=== PATIENT | male | born 1995 | race American Indian/Alaskan Native ===

== ENCOUNTER 2018-03-18 20:09 | Emergency (ER) | payer SELFPAY ==
[2018-03-18 20:46] VITALS: BP 121/74
[2018-03-19] MEDS ORDERED: MOTRIN PO ONE (02:43)
[2018-03-19] MEDS ORDERED: ULTRAM PO ONE (02:43)
--- NOTE | 2018-03-19 02:47 | Emergency Department Report ---
ED ENT HPI - General Chief complaint: Dental/Oral Stated complaint: TOOTHACHE; H/A Time Seen by Provider: 03/19/18 02:30 Source: patient Mode of arrival: Ambulatory Limitations: No Limitations - History of Present Illness Initial comments: 22-year-old -Thai male comes in complaining of toothache 3 days. Patient reports that he's had a toothache has been intermittent for the past few months but in the last 3 days it has gotten excruciating. Patient reports that he is having no relief from [id number] medications. Patient reports that he's tried Tylenol, Goody, Orajel without any relief. Patient is aware that he has a large cavity in the right upper tooth adjacent to his wisdom tooth. Patient reports she has not even able to eat soft foods such as noodles. MD complaint: tooth pain -: days(s) (3 excruciating pain), month(s) (several months intermittent pain) Location: tooth # (2) Severity: severe Severity scale (0 -10): 10 Quality: constant Consistency: constant Improves with: none Worsens with: eating Context- Dental: history of dental caries Associated Symptoms: toothache. denies: gum swelling, pain with swallowing, sore throat - Related Data Previous Rx's Medication Instructions Recorded Last Taken Type Ibuprofen [Motrin 800 MG tab] 800 mg PO Q8HR PRN #30 tablet 03/19/18 Unknown Rx traMADol [Ultram 50 MG tab] 50 mg PO Q6HR PRN #20 tablet 03/19/18 Unknown Rx Allergies Allergy/AdvReac Type Severity Reaction Status Date / Time No Known Allergies Allergy Unverified 03/18/18 20:46 ED Dental HPI - General Chief complaint: Dental/Oral Stated complaint: TOOTHACHE; H/A Time Seen by Provider: 03/19/18 02:30 Source: patient Mode of arrival: Ambulatory Limitations: No Limitations - Related Data Previous Rx's Medication Instructions Recorded Last Taken Type Ibuprofen [Motrin 800 MG tab] 800 mg PO Q8HR PRN #30 tablet 03/19/18 Unknown Rx traMADol [Ultram 50 MG tab] 50 mg PO Q6HR PRN #20 tablet 03/19/18 Unknown Rx Allergies Allergy/AdvReac Type Severity Reaction Status Date / Time No Known Allergies Allergy Unverified 06/20/18 20:46 ED Review of Systems ROS: Stated complaint: TOOTHACHE; H/A Other details as noted in HPI ENT: dental pain ED Past Medical Hx - Past Medical History Previous Medical History?: Yes Hx Asthma: Yes - Surgical History Past Surgical History?: No - Social History Smoking Status: Never Smoker Substance Use Type: None - Medications Home Medications: Home Medications Medication Instructions Recorded Confirmed Last Taken Type Ibuprofen [Motrin 800 MG tab] 800 mg PO Q8HR PRN #30 tablet 03/19/18 Unknown Rx traMADol [Ultram 50 MG tab] 50 mg PO Q6HR PRN #20 tablet 03/19/18 Unknown Rx ED Physical Exam - General Limitations: No Limitations General appearance: alert, in no apparent distress - Head Head exam: Present: atraumatic, normocephalic - ENT ENT exam: Present: mucous membranes moist - Expanded ENT Exam Expanded Teeth exam: Present: dental caries, dental tenderness # (2). Absent: gingival enlargement Throat exam: Negative: tonsillar erythema, tonsillomegaly - Neck Neck exam: Present: full ROM. Absent: tenderness, lymphadenopathy ED Course Vital Signs 03/18/18 20:41 Temperature 97.8 F Pulse Rate 84 Respiratory 20 Rate Blood Pressure 121/74 O2 Sat by Pulse 99 Oximetry ED Medical Decision Making - Medical Decision Making Patient has been evaluated by this provider fast track. Orders for tramadol 50 mg by mouth now ibuprofen 800 mg by mouth now. Discharge patient on tramadol 50 mg by mouth every 6 hours and ibuprofen 800 mg by mouth every 8 hours when necessary for pain. Referral to dental. Patient verbalizes understanding. Critical care attestation.: If time is entered above; I have spent that time in minutes in the direct care of this critically ill patient, excluding procedure time. ED Disposition Clinical Impression: Pain due to dental caries Disposition: DC-01 TO HOME OR SELFCARE Is pt being admited?: No Does the pt Need Aspirin: No Condition: Stable Instructions: Toothache (ED), Dental Caries (ED) Additional Instructions: Please take pain medication as prescribed. Please caution yourself driving heavy machinery while taking tramadol. Follow up with a dentist for continued treatment. Prescriptions: Ibuprofen [Motrin 800 MG tab] 800 mg PO Q8HR PRN #30 tablet PRN Reason: Pain , Severe (7-10) traMADol [Ultram 50 MG tab] 50 mg PO Q6HR PRN #20 tablet PRN Reason: Pain Referrals: PRIMARY CARE, [Primary Care Provider] - 3-5 Days [facility] [Provider Group] - 3-5 Days [facility] [Outside] - 3-5 Days [facility] [Outside] - 3-5 Days Forms: Work/School Release Form(ED)
== END 2018-03-19 03:20 | disposition home or self-care (01) ==
LOC: ED 20:09
DX: K02.9 Dental caries, unspecified (principal); J45.909 Unspecified asthma, uncomplicated
CPT/HCPCS: 99282